=== PATIENT | female | born 1990 | race Caucasian/White ===

== ENCOUNTER 2017-01-02 20:26 | Emergency (ER) | payer BC ==
[~2017-01-02] VITALS: Ht 154.9 cm; Wt 62.1 kg
[2017-01-02 21:18] LABS: ADD MIUA? YES; BILIRUBIN NEGATIVE; BLOOD NEGATIVE; COLOR AMBER ((YELLOW)); GLUCOSE (STRIP) NEGATIVE; KETONES 5; LEUKOCYTES SMALL; NITRITE NEGATIVE; PROTEIN (STRIP) NEGATIVE; SPECIFIC GRAVITY 1.029 (1.000-1.030); UROBILINOGEN 0.2 MG/DL (0.2-1.0)
[2017-01-02 21:24] LABS: BACTERIA RARE /HPF; EPITHELIAL CELLS 4+ /HPF; MUCUS 3+ /LPF; RED BLOOD CELLS 0-5 /HPF (0-5); UCUL ADDED? NO; WHITE BLOOD CELLS 0-5 /HPF (0-5)
[2017-01-02 23:11] LABS: HEMATOCRIT 37.4 % (36.0-46.0); MCH 28.6 PG (29.0-34.0); MCV 84.2 FL (83-99); MEAN PLAT.VOLUME 9.4 uM^3 (9.5-12.4); PLATELET COUNT 306 K/uL (156-360); RBC DIS.WIDTH-CV 12.4 % (11.8-14.6); RBC DIS.WIDTH-SD 38.1 % (39-53); RED BLOOD COUNT 4.44 M/uL (3.80-5.20); WHITE BLOOD COUNT 9.9 K/uL (4.1-10.2)
[2017-01-02 23:19] LABS: CHLORIDE 105 mEq/L (99-109); POTASSIUM 3.6 mEq/L (3.7-5.4); SODIUM 138 mEq/L (136-147)
[2017-01-02 23:22] LABS: GLUCOSE 96 mg/dL (70-99)
[2017-01-02 23:23] LABS: ANION GAP 10 MEQ/L (2-14)
[2017-01-02 23:24] LABS: TOTAL BILIRUBIN 0.4 mg/dL (0.0-1.0)
[2017-01-02 23:25] LABS: ALKALINE PHOSPHATASE 73 IU/L (3-129); GFR ESTIMATE (CALCULATED) > 59 mL/min/
[2017-01-02 23:26] LABS: UREA NITROGEN (BUN) 12 mg/dL (9-23)
[2017-01-02 23:56] LABS: QUANTITATIVE HCG 85607.6 MIU/ML
[2017-01-03 02:42] VITALS: BP 108/68
== END 2017-01-03 02:43 | disposition home or self-care (01) ==
LOC: EME 20:26
PROVIDERS: Nurse Practitioner Family
DX: O26.891 Other specified pregnancy related conditions, first trimester (principal); R10.30 Lower abdominal pain, unspecified; Z3A.01 Less than 8 weeks gestation of pregnancy; Z87.440 Personal history of urinary (tract) infections
CPT/HCPCS: 76801; 80053; 81003; 84702; 85027; 99281; 99284